=== PATIENT | male | born 2000 | race Caucasian/White ===

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

== ENCOUNTER 2022-01-28 19:09 | Emergency (ER) | payer MEDICAID ==
[~2022-01-28] VITALS: Ht 172.7 cm; Wt 92.0 kg
[2022-01-28 19:50] VITALS: BP 134/69
[2022-01-28] MEDS ORDERED: IBUPROFEN 600MG TABLET PO ONE (21:15)
[2022-01-28] MEDS ORDERED: CEPHALEXIN 250MG CAPSULE PO ONE (21:15)
[2022-01-28] MEDS ORDERED: CEPH500C2 MT (21:16)
[2022-01-28] MEDS ORDERED: IBUP-2029 MT (21:18)
== END 2022-01-28 21:41 | disposition left against medical advice (07) ==
LOC: ER 19:09
DX: L03.116 Cellulitis of left lower limb (principal)
CPT/HCPCS: 10060; 99282